=== PATIENT | male | born 1945 ===

== ENCOUNTER 2017-01-23 09:22 | Day surgery (SDC) | payer SELFPAY ==
[2017-01-18 09:42] VITALS: BMI 38.7
[2017-01-23] MEDS ORDERED: Propofol 10 mg/ml Inj (20 ML) ONE ×2 (11:18→11:46)
[2017-01-23] MEDS ORDERED: Benzocaine/Butamben/Tetracai 14-2-2% TOP Spray TOP ONE (11:24)
[2017-01-23] MEDS ORDERED: Sodium Chloride 0.9% 1,000 ML IV SCH (12:15)
[2017-01-23] MEDS ORDERED: HYDROmorphone 0.5 mg/0.5 ml ISec IVP PRN (12:25)
[2017-01-23] MEDS ORDERED: HYDROmorphone 0.5 mg/0.5 ml ISec ONE (12:30)
[2017-01-23 12:42] VITALS: RESP 16
[2017-01-23 13:08] VITALS: TEMP 97.5
[2017-01-23 13:48] VITALS: BP 144/73; PULSE 57; O2SAT 98
== END 2017-01-23 14:18 | disposition home or self-care (01) ==
LOC: ENDO 09:22
PROVIDERS: ATTEND Internal Medicine
DX: K22.710 Barrett's esophagus with low grade dysplasia (principal); K29.70 Gastritis, unspecified, without bleeding; K44.9 Diaphragmatic hernia without obstruction or gangrene; E66.9 Obesity, unspecified; Z68.38 Body mass index [BMI] 38.0-38.9, adult
CPT/HCPCS: 43270; J1170; J2704; J7040 ×2

== ENCOUNTER 2017-03-04 11:25 | Inpatient (IN) | payer SELFPAY ==
[2017-03-04 11:26] VITALS: BMI 38.7
[2017-03-04] MEDS ORDERED: Sodium Chloride 0.9% 500 ML IV STA (12:12)
--- NOTE | 2017-03-04 12:17 | ED PDOC ---
Arrival/HPI - General Historian: Patient, Family (daughter ) - History of Present Illness Time/Duration: Other (2 days.) Symptom Onset: Gradual Symptom Course: Worsening Quality: Cramping Context: Home - General Chief Complaint: Abdominal Pain Time Seen by Provider: 03/04/17 11:35 - History of Present Illness Narrative History of Present Illness (Text): 03/04/17 12:18 Patient is a 71 y/o M with PMH of Torres esophagus, hld, pituitary adenoma s/p partial resection, chronic prednisone use presenting with watery diarrhea, lower GI bleeding, and abdominal pain. Patient states since yesterday he has been experiencing watery diarrhea and abdominal cramps, then today he noticed blood in the stool. Patient states the toilet bowel was filled with stool, and he also noticed blood when he wiped. Patient's unable to say the color of the stool. Patient unable to quantify the number of time he had diarrhea. Patient denies vomiting, admits to nausea. Patient admits to cramping like abdominal pain. Patient states since yesterday he had no appetite. Patient denies fever, chills, cp, sob, denies sick contact. patient admits to feeling dizzy, and lightheadedness. (Mariah Moreno) Past Medical History - Provider Review Nursing Documentation Reviewed: Yes - Travel History Have you recently traveled outside [place] w/in the past 3 mons?: No - Past History Past History: No Previous - Infectious Disease Hx of Infectious Diseases: None - Tetanus Immunization Tetanus Immunization: Unknown - Cardiac Hx Cardiac Disorders: No Hx Pacemaker: No - Pulmonary Hx Respiratory Disorders: No - Neurological Hx Neurological Disorder: No Hx Paralysis: No - HEENT Hx HEENT Disorder: Yes Hx Cataracts: Yes (SURGERY 2013) - Renal Hx Renal Disorder: No - Endocrine/Metabolic Hx Endocrine Disorders: Yes Hx Hypothyroidism: Yes Other/Comment: tumor pituitary gland - Hematological/Oncological Hx Blood Disorders: No Hx Blood Transfusions: No Hx Blood Transfusion Reaction: No - Integumentary Hx Dermatological Disorder: No - Musculoskeletal/Rheumatological Hx Musculoskeletal Disorders: Yes - Gastrointestinal Hx Gastrointestinal Disorders: Yes Hx Gastroesophageal Reflux: Yes Other/Comment: TORRES'S ESOPHAGUS - Genitourinary/Gynecological Hx Genitourinary Disorders: No - Psychiatric Hx Psychophysiologic Disorder: No Hx Emotional Abuse: No Hx Physical Abuse: No Hx Substance Use: No - Surgical History Other/Comment: pituitary - Anesthesia Hx Anesthesia Reactions: No Hx Malignant Hyperthermia: No - Suicidal Assessment Feels Threatened In Home Enviroment: No Family/Social History - Physician Review Nursing Documentation Reviewed: Yes Family/Social History: No Known Family HX Smoking Status: Former Smoker Hx Alcohol Use: No Hx Substance Use: No Allergies/Home Meds Allergies/Adverse Reactions: Allergies No Known Allergies Allergy (Verified 09/24/16 09:08) Home Medications: Home Meds Medication Instructions Recorded Confirmed Hydrocortisone [Cortef] 20 mg PO DAILY 06/21/16 03/04/17 Levothyroxine [Synthroid] 100 mcg PO DAILY 06/21/16 03/04/17 Hydrocortisone [Cortef] 10 mg PO QPM 01/18/17 03/04/17 Omeprazole [Omeprazole] 40 mg PO BID 01/23/17 03/04/17 Atorvastatin [Lipitor] 10 mg PO HS 03/04/17 03/04/17 Review of Systems - Review of Systems Constitutional: Normal Eyes: Normal ENT: Normal Respiratory: Normal Cardiovascular: Normal Gastrointestinal: Abdominal Pain, Stool Changes, Diarrhea, Nausea, Appetite Changes, Hematochezia. absent: Vomiting, Hematemesis Genitourinary Male: Normal Musculoskeletal: Normal Skin: Normal Neurological: Dizziness. absent: Headache, Focal Weakness Endocrine: Normal Hemo/Lymphatic: Normal Psychiatric: Normal Physical Exam Vital Signs Reviewed: Yes Temperature: Afebrile Blood Pressure: Normal Pulse: Regular Respiratory Rate: Normal Appearance: Positive for: Well-Appearing, Non-Toxic, Comfortable Pain Distress: None Mental Status: Positive for: Alert and Oriented X 3 - Systems Exam Head: Present: Atraumatic, Normocephalic Conjunctiva: No: Icteric Mouth: Present: Dry Neck: Present: Normal Range of Motion Respiratory/Chest: Present: Clear to Auscultation, Good Air Exchange. No: Respiratory Distress, Accessory Muscle Use, Wheezes, Rales, Retracting, Rhonchi , Tachypneic Cardiovascular: Present: Regular Rate and Rhythm, Normal S1, S2. No: Murmurs, Tachycardic, Bradycardic, Rub, Gallop Abdomen: Present: Tenderness (diffuse.), Normal Bowel Sounds. No: Distention ( obese abdomen. ), Rebound, Guarding Rectal: Present: Hemorrhoids (non bleeding.), Normal Rectal Tone. No: Occult Blood, Rectal Tenderness, Gross Blood, Melena, Fissures Upper Extremity: Present: Normal Inspection. No: Cyanosis, Edema Lower Extremity: Present: Normal Inspection. No: Edema Neurological: Present: GCS=15 Skin: Present: Warm, Dry, Normal Color. No: Rashes Psychiatric: Present: Alert, Oriented x 3, Normal Insight, Normal Concentration Medical Decision Making - Lab Interpretations I have reviewed the lab results: Yes (hypokalemia ) - EKG Interpretation Interpreted by ED Physician: Yes Type: 12 lead EKG ED Course and Treatment: 03/04/17 12:36 Patient is a 71 y/o M with PMH of Torres esophagus, hld, pituitary adenoma s/p partial resection, chronic prednisone use presenting with watery diarrhea, lower GI bleeding, and abdominal pain. Differentials: Lower gi bleeding 2nd to hemorrhoid versus diverticular disease, vascular ectasias, colitis. Plan: CBC, CMP, TYP AND SCREEN, PT/PTT, LIPASE, UA CHEST X-RAY, EKG, CT abdo and pelvis with IV contrast Prednisone 40 mg ivp, zofran 4 m g ivp and 1/2 L of NS. No gross blood on rectal exam, non bleeding hemorrhoid, Stool guaic positive. Patient seen, examined, case discussed with Dr Parks. 03/04/17 14:23 Labs were normal, excpet hypokalemia . CT abdomen and pelvis revealed extensive colitis. Dr Parks spoke to Dr Toth, patient is to be admitted under the hospitalist service for colitis. (Maraih Moreno) In agreement with resident note, which includes further HPI details. Patient was seen and evaluated with resident, came up with plan and treatment together. pt with gi bleed, and abdominal pain. ct shows colitis h/h stable. vitals stable. stablef or tele. antibiotics dosed 03/04/17 15:41 (Jason Parks) - Lab Interpretations Lab Results: 03/04/17 12:30 03/04/17 12:30 Lab Results 03/04/17 12:30: Sodium 135, Potassium 3.3 L, Chloride 103, Carbon Dioxide 22, Anion Gap 13, BUN 12, Creatinine 1.0, Est GFR ( Amer) > 60, Est GFR (Non- Af Amer) > 60, Random Glucose 93, Calcium 8.5, Total Bilirubin 0.7, AST 34, ALT 42, Alkaline Phosphatase 72, Lactate Dehydrogenase 542, Total Creatine Kinase 88 , Troponin I < 0.01, Total Protein 6.8, Albumin 3.8, Globulin 3.1, Albumin/ Globulin Ratio 1.2, Lipase 78 03/04/17 12:30: PT 11.0, INR 1.02, APTT 27.5 03/04/17 12:30: WBC 5.0, RBC 4.91, Hgb 14.1, Hct 41.4 L, MCV 84.3, MCH 28.7, MCHC 34.1, RDW 14.8 H, Plt Count 158, MPV 9.3, Gran % 68.5 H, Lymph % (Auto) 22.4, [place] % (Auto) 7.9 H, Eos % (Auto) 0.8 L, Baso % (Auto) 0.4, Gran # 3.40, Lymph # 1.1 L, [place] # 0.4, Eos # 0.0, Baso # 0.02 03/04/17 12:30: Blood Type AB POSITIVE, Antibody Screen Negative, BBK History Checked No verified bt - RAD Interpretation Narrative RAD Interpretations (Text): 03/04/17 14:34 Normal chest x-ray . CT abdo/pelvis with IV contrast: mural thickening, consistent with colitis. ( Mariah Moreno) Radiology Orders: 03/04/17 12:08 CHEST ONE VIEW [RAD] Stat 03/04/17 12:11 ABDOMEN & PELVIS [ABD & PELVIS IV CONTRAST ONLY] [CT] Stat - EKG Interpretation EKG Interpretation (Text): 03/04/17 14:36 NSR with AR of 68 bpm Normal axis No CO or QRS prolongation mildly prolonged QTC Inferior infarct, age undetermined. (Mariah Moreno) - Medication Orders Current Medication Orders: Discontinued Medications Sodium Chloride (Sodium Chloride 0.9%) 500 mls @ 999 mls/hr IV .Q31M STA Stop: 03/04/17 12:42 Last Admin: 03/04/17 12:30 Dose: 999 mls/hr Piperacillin Sod/Tazobactam Sod (Zosyn 3.375 In Ns 100ml) 100 mls @ 200 mls/hr IVPB STAT STA PRN Reason: Protocol Stop: 03/04/17 14:40 Last Admin: 03/04/17 14:33 Dose: 200 mls/hr Iohexol (Omnipaque 350 100 Ml) Confirm Administered Dose 350 mg .ROUTE .STK-MED ONE Stop: 03/04/17 13:17 Ondansetron HCl (Zofran Inj) 4 mg IVP STAT STA Stop: 03/04/17 12:11 Last Admin: 03/04/17 12:29 Dose: 4 mg Pantoprazole Sodium (Protonix Inj) 40 mg IVP STAT STA Stop: 03/04/17 12:11 Last Admin: 03/04/17 12:31 Dose: 40 mg Potassium Chloride (K-Dur 20 Meq Er Tab) 40 meq PO STAT STA Stop: 03/04/17 13:10 Last Admin: 03/04/17 13:19 Dose: 40 meq Disposition/Present on Arrival - Present on Arrival Any Indicators Present on Arrival: No History of DVT/PE: No History of Uncontrolled Diabetes: No Urinary Catheter: No History of Decub. Ulcer: No History Surgical Site Infection Following: None - Disposition Have Diagnosis and Disposition been Completed?: Yes Disposition Time: 14:38 Patient Plan: Admission, Telemetry - Disposition Diagnosis: Colitis, Hypokalemia Disposition: HOSPITALIZED Patient Problems: Current Active Problems Problem Status Onset Colitis Acute Hypokalemia Acute Condition: STABLE
[2017-03-04 12:55] LABS: ADD MANUAL DIFF? NO
[2017-03-04 12:58] LABS: BASO # 0.02 K/mm3 (0.0-2.0); BASO % 0.4 % (0.0-3.0); EOS % 0.8 % (1.5-5.0); GRAN % 68.5 % (50.0-68.0); HEMATOCRIT 41.4 % (42.0-52.0); LYMPH # 1.1 (1.2-3.4); LYMPH % 22.4 % (22.0-35.0); MEAN CELL VOLUME 84.3 fL (80.0-105.0); MEAN CORPUSCULAR HEMOGLOBIN 28.7 pg (25.0-35.0); MEAN CORPUSCULAR HGB CONC 34.1 g/dl (31.0-37.0); MEAN PLATELET VOLUME 9.3 fl (7.0-11.0); MONO # 0.4 (0.1-0.6); MONO % 7.9 % (1.0-6.0); PLATELET COUNT 158 10^3/uL (120.0-450.0); RED CELL DISTRIBUTION WIDTH 14.8 % (11.5-14.5)
[2017-03-04 13:07] LABS: ALB/GLOB RATIO 1.2 (1.1-1.8); ALKALINE PHOSPHATASE 72 U/L (38-133); ALT/SGPT 42 U/L (7-56); AST/SGOT 34 U/L (15-59); BILIRUBIN,TOTAL 0.7 mg/dL (0.2-1.3); BLOOD UREA NITROGEN 12 mg/dL (7-21); CALCIUM 8.5 mg/dL (8.4-10.5); CARBON DIOXIDE 22 mmol/L (21-33); CHLORIDE 103 mmol/L (98-107); GFR AFRICAN-AMERICAN > 60; GLUCOSE,RANDOM 93 mg/dL (70-110); LIPASE 78 U/L (23-300); POTASSIUM 3.3 mmol/L (3.6-5.0); SODIUM 135 mmol/L (132-148); TOTAL PROTEIN 6.8 g/dL (5.8-8.3)
[2017-03-04 13:09] LABS: INR 1.02 (0.93-1.08); PARTIAL THROMBOPLASTIN TIME 27.5 Seconds (23.7-30.8)
[2017-03-04] MEDS ORDERED: Potassium Chloride 20 mEq ER Tab PO STA (13:09)
[2017-03-04] MEDS ORDERED: Iohexol 350 MG/100 ML VIAL ONE (13:16)
--- NOTE | 2017-03-04 13:18 | RAD ---
PROCEDURE: CHEST RADIOGRAPH, 1 VIEW HISTORY: gi bleed COMPARISON: None available. FINDINGS: LUNGS: Clear. PLEURA: No pneumothorax or pleural fluid seen. CARDIOVASCULAR: Normal. OSSEOUS STRUCTURES: No significant abnormalities. VISUALIZED UPPER ABDOMEN: Normal. OTHER FINDINGS: None. IMPRESSION: No active disease.
[2017-03-04 13:19] LABS: TROPONIN I < 0.01 ng/mL
[2017-03-04] MEDS ORDERED: Piperacillin/Tazobact 3.375 gm 100 ML IVPB STA (14:11)
--- NOTE | 2017-03-04 14:12 | CT ---
PROCEDURE: CT Abdomen and Pelvis with contrast HISTORY: gi bleed COMPARISON: None. TECHNIQUE: Contrast dose: 100 cc of Omni 350 Radiation dose: Total exam DLP = 823 mGy-cm. This CT exam was performed using one or more of the following dose reduction techniques: Automated exposure control, adjustment of the mA and/or kV according to patient size, and/or use of iterative reconstruction technique. FINDINGS: LOWER THORAX: Unremarkable. LIVER: Unremarkable. No gross lesion or ductal dilatation. GALLBLADDER AND BILE DUCTS: Unremarkable. PANCREAS: Unremarkable. No gross lesion or ductal dilatation. SPLEEN: Unremarkable. ADRENALS: Unremarkable. No mass. KIDNEYS AND URETERS: Unremarkable. No hydronephrosis. No solid mass. VASCULATURE: Unremarkable. No aortic aneurysm. BOWEL: There is mural thickening throughout the colon consistent with colitis. The findings are more severe on the right side. There is no evidence of pneumatosis or free air. APPENDIX: Normal appendix. PERITONEUM: Unremarkable. No free fluid. No free air. LYMPH NODES: Unremarkable. No enlarged lymph nodes. BLADDER: Unremarkable. REPRODUCTIVE: Unremarkable. BONES: No acute fracture. OTHER FINDINGS: None. IMPRESSION: Mural thickening throughout the colon consistent with colitis.
[2017-03-04] MEDS: metroNIDAZOLE IV 500 mg/100 ml 500 MG/100 ML BAG IVPB SCH ×2 (16:59→21:13)
[2017-03-04 17:19] LABS: ADD MANUAL DIFF? NO
--- NOTE | 2017-03-04 17:22 | CP.PCM.HP ---
Addendum entered and electronically signed by Wilfred Dinh DO 03/04/17 17:46: History and ROS obtained at bedside using [employer] umbrella repairer, Feliz Starkey #[id number] Original Note: <Wilfred Dinh - Last Filed: 03/04/17 17:10> History of Present Illness - History of Present Illness History of Present Illness: Internal Medicine H&P for Dr. Toth CC: Watery diarrhea with bright red blood and diffuse abd pain x2 days HPI: This is a 71yo (Ivorian-speaking only) M with PMH of Torres esophagus s/p EGD ablations, HLD, pituitary adenoma s/p partial resection on chronic steroid and thyroid replacement therapy who presents to [facility] with complain of diffuse abdominal pain and watery diarrhea with bright red blood present x2 days. As per patient, he recently changed from taking Omeprazole 20mg BID to 40mg BID (it appears he was supposed to do this after EGD/ Colonoscopy), which he believes is causing these symptoms. Patient denies sick contacts, chest pain, shortness of breath, dysuria/hematuria, or emesis, but reports abdominal pain starting in LLQ now diffusely present, sensation of needing to vomit but being unable to, and lack of appetite/poor PO intake x2 days. Denies past abdominal surgeries. Notes that the blood associated with his diarrhea appears to be mixed with the watery stool, not only appearing when he wipes. Denies hx of hemorrhoids. Denies straining to move bowels. No prior occurrence of these symptoms. PMH: as above PSH: partial resection of pituitary adenoma, unspecified left hip procedure 8 months ago, Cataract removal, Ablation of Speedy's esophagus lesions by EGD SHx: Denies tobacco/EtOH/Illicit use PMD: Present on Admission - Present on Admission Any Indicators Present on Admission: No History of DVT/PE: No History of Uncontrolled Diabetes: No Review of Systems - Constitutional Constitutional: absent: Chills, Fever, Malaise, Weakness - EENT Eyes: absent: Blurred Vision, Change in Vision, Loss of Vision Ears: absent: Disequilibrium, Dizziness Nose/Mouth/Throat: absent: Neck Pain, Neck Mass Additional comments: sensation of needing to vomit but stuck in throat - Cardiovascular Cardiovascular: absent: Chest Pain, Dyspnea, Leg Edema, Lightheadedness, Palpitations, Syncope - Respiratory Respiratory: absent: Cough, Dyspnea, Hemoptysis, Pain on Inspiration - Gastrointestinal Gastrointestinal: Abdominal Pain (initially LLQ, now diffuse, describes as sensation of bloating/moving of intestines with accompanying discomfort), Change in Bowel Habits, Diarrhea (watery diarrhea), Nausea, Other (bright red blood in toilet bowel with watery diarrhea and when wiping). absent: Vomiting - Genitourinary Genitourinary: Urinary Frequency. absent: Difficulty Urinating, Dysuria, Flank Pain, Hematuria - Musculoskeletal Musculoskeletal: absent: Back Pain, Numbness, Radiating Pain into Limb - Integumentary Integumentary: absent: Pruritus, Rash - Neurological Neurological: Numbness (mild intermittent numbness in bilateral feet, baseline for patient). absent: Disequilibrium, Dizziness, Focal Weakness, Loss of Vision , Syncope, Vertigo, Other Visual Disturbances - Psychiatric Psychiatric: absent: Anxiety - Endocrine Endocrine: absent: Fatigue, Palpitations Past Patient History - Infectious Disease Hx of Infectious Diseases: None - Tetanus Immunizations Tetanus Immunization: Unknown - Past Medical History & Family History Past Medical History?: Yes - Past Social History Smoking Status: Former Smoker - CARDIAC Hx Cardiac Disorders: No Hx Pacemaker: No - PULMONARY Hx Respiratory Disorders: No - NEUROLOGICAL Hx Neurological Disorder: No Hx Paralysis: No - HEENT Hx HEENT Problems: Yes Hx Cataracts: Yes (SURGERY 2013) - RENAL Hx Chronic Kidney Disease: No - ENDOCRINE/METABOLIC Hx Endocrine Disorders: Yes Hx Hypothyroidism: Yes Other/Comment: tumor pituitary gland - HEMATOLOGICAL/ONCOLOGICAL Hx Blood Disorders: No Hx Blood Transfusions: No Hx Blood Transfusion Reaction: No - INTEGUMENTARY Hx Dermatological Problems: No - MUSCULOSKELETAL/RHEUMATOLOGICAL Hx Musculoskeletal Disorders: Yes - GASTROINTESTINAL Hx Gastrointestinal Disorders: Yes Hx Gastroesophageal Reflux: Yes Other/Comment: TORRES'S ESOPHAGUS - GENITOURINARY/GYNECOLOGICAL Hx Genitourinary Disorders: No - PSYCHIATRIC Hx Psychophysiologic Disorder: No Hx Emotional Abuse: No Hx Physical Abuse: No Hx Substance Use: No - SURGICAL HISTORY Other/Comment: pituitary - ANESTHESIA Hx Anesthesia Reactions: No Hx Malignant Hyperthermia: No Meds Allergies/Adverse Reactions: Allergies Allergy/AdvReac Type Severity Reaction Status Date / Time No Known Allergies Allergy Verified 09/24/16 09:08 Results - Vital Signs Recent Vital Signs: Last Vital Signs Temp 98.8 F 03/04/17 11:41 Pulse 68 03/04/17 16:28 Resp 18 03/04/17 16:28 BP 121/68 03/04/17 16:28 Pulse Ox 97 03/04/17 16:28 - Labs Result Diagrams: 03/04/17 12:30 03/04/17 12:30 Labs: Laboratory Results - last 24 hr 03/04/17 14:40 Blood Type Confirm AB POSITIVE Assessment & Plan - Assessment and Plan (Free Text) Assessment: This is a 71yo (Ivorian-speaking only) M with PMH of Torres esophagus s/p EGD ablations, HLD, pituitary adenoma s/p partial resection on chronic steroid and thyroid replacement therapy who presents to [facility] with complain of diffuse abdominal pain and watery diarrhea with bright red blood present x2 days. He is being worked up for GI bleed vs hemorrhoid vs enteritis. Plan: 1) Watery diarrhea and abd pain with bright red blood in bowel and wiping -Crohn's vs UC vs enteritis vs Upper GI bleed vs Lower GI bleed vs diarrhea co- presenting with hemorrhoid; may have contributory element from chronic steroids -Conoscopy in 06/21/16 notable for non-bleeding internal hemorroids, 6mm polyp ( resected) -Denies use of NSAIDs, no prior incidence of bleeding episodes like this -Hgb 14.1 (baseline for this pt), repeat H&H at 530pm and reassess, some hgb drop likely due to hemoconcentration (Poor intake and watery diarrhea x2 days) -Possible upper GI ulceration, patient reports that he was supposed to start Omeprazole 40mg PO BID after last EGD, but he waited to start until he finished his bottle of 20mg PO BID, which he only finished 3 days prior -Convert from home PO PPI to protonix IV 40mg BID; presentation of patient not suggestive of needing Protonix drip at this time -Stool occult positive -CT abd in Ed notable for mural thickening throughout the colon consistent with colitis, more severe on the right, no evidence of pneumatosis/free air -NPO except meds for bowel rest, NS 125cc/hr, Protonix 40mg IVP BID -Zofran PRN for nausea/emesis -GI (Dr. Gonzalez) consulted, appreciate all recs -1x dose of Zosyn in ED, covering empirically with rocephin/flagyl IV -Less likely C. Diff. as no recent abx use, last visit to hospital in January 2017, but C. diff toxin test ordered to rule out 2) Left hip/thigh pain -LE Duplex to rule out dvt -avoid AC due to suspected GI bleed, SCDs for DVT ppx 3) HLD -continue home Lipitor 4) S/p pituitary adenoma partial resection on steroid and thyroid replacement therapy -continue home Synthroid, IV hydrocortisone instead of PO (otherwise same dosing ) 5) Hypokalemia -3.3 on ED labs -likely 2/2 diarrhea and poor PO intake -repleted in ED, f/u on AM labs Dispo: Remote telemetry, pending GI eval, NPO and IVF for bowel rest, empiric IV abx coverage FEN: NPO, NS 125cc/hr Access: Peripheral IV Consults: GI Ppx: Protonix covers for GI, SCDs for DVT (avoid AC in setting of possible GI bleed) Patient seen, reviewed, and discussed with attending, Dr. Toth - Date & Time Date: 03/04/17 Time: 16:30 Decision To Admit - Pt Status Changed To: Hospital Disposition Of: Inpatient Admission - Admit Certification Admit to Inpatient:: After my assessment, the patient will require hospitalization for at least two midnights. This is because of the severity of symptoms shown, intensity of services needed, and/or the medical risk in this patient being treated as an outpatient. - . Bed Request Type: Remote Telemetry <Viki Toth - Last Filed: 03/04/17 17:55> Results - Vital Signs Recent Vital Signs: Last Vital Signs Temp 98.8 F 03/04/17 11:41 Pulse 68 03/04/17 16:28 Resp 18 03/04/17 16:28 BP 121/68 03/04/17 16:28 Pulse Ox 97 03/04/17 16:28 - Labs Result Diagrams: 03/04/17 17:00 03/04/17 12:30 Labs: Laboratory Results - last 24 hr 03/04/17 03/04/17 14:40 17:00 WBC 4.9 RBC 4.73 Hgb 13.5 L Hct 40.0 L MCV 84.6 MCH 28.5 MCHC 33.8 RDW 14.7 H Plt Count 164 MPV 9.2 Gran % 66.2 Lymph % (Auto) 24.8 [place] % (Auto) 7.6 H Eos % (Auto) 1.2 L Baso % (Auto) 0.2 Gran # 3.23 Lymph # 1.2 [place] # 0.4 Eos # 0.1 Baso # 0.01 Blood Type Confirm AB POSITIVE Attending/Attestation - Attestation I have personally seen and examined this patient.: Yes I have fully participated in the care of the patient.: Yes I have reviewed all pertinent clinical information: Yes Notes (Text): 03/04/17 17:49 71 year old male with past medical history of Torres's esophagus s/p EGD ablations, dyslipidemia, pituitary adenoma s/p partial resection who presents today with complaint of abdominal pain and diarrhea. CT abd/pelvis showed colitis. Will keep NPO, on iv fluids, protonix and antibiotics. GI evaluation is requested. Stool for cdif is ordered. Patient is also on synthroid and chronic steroids for history of pituitary adenoma s/p partial resection. Hypokalemia was repleted in ER. Will monitor. Viki Toth MD Hospitalist.
[2017-03-04 17:23] LABS: BASO # 0.01 K/mm3 (0.0-2.0); BASO % 0.2 % (0.0-3.0); EOS # 0.1 (0.0-0.7); EOS % 1.2 % (1.5-5.0); GRAN # 3.23 (1.4-6.5); GRAN % 66.2 % (50.0-68.0); LYMPH # 1.2 (1.2-3.4); LYMPH % 24.8 % (22.0-35.0); MEAN CELL VOLUME 84.6 fL (80.0-105.0); MEAN CORPUSCULAR HEMOGLOBIN 28.5 pg (25.0-35.0); MEAN CORPUSCULAR HGB CONC 33.8 g/dl (31.0-37.0); MEAN PLATELET VOLUME 9.2 fl (7.0-11.0); MONO # 0.4 (0.1-0.6); MONO % 7.6 % (1.0-6.0); PLATELET COUNT 164 10^3/uL (120.0-450.0); RED CELL DISTRIBUTION WIDTH 14.7 % (11.5-14.5); WHITE BLOOD COUNT 4.9 10^3/ul (4.5-11.0)
[2017-03-04] MEDS ORDERED: HYDROCORTISONE IV SCH (18:00)
[2017-03-04] MEDS: cefTRIAXone 1 gm 1 GM/100 ML BAG IVPB SCH (18:36)
[2017-03-04] MEDS ORDERED: Sodium Chloride 0.9% 1,000 ML IV SCH (18:45)
[2017-03-04] MEDS: Sodium Chloride 0.9% 1,000 ML IV SCH (19:02)
[2017-03-04] MEDS: TraMADol/Apap 37.5/325 mg Tab PO PRN (19:27)
[2017-03-05 02:02] LABS: URINE BILIRUBIN NEGATIVE (NEGATIVE); URINE BLOOD SMALL (NEGATIVE); URINE GLUCOSE (UA) NEGATIVE (NEGATIVE); URINE KETONE 40 mg/dL (NEGATIVE); URINE LEUKOCYTE ESTERASE NEGATIVE Leu/uL (NEGATIVE); URINE PROTEIN TRACE mg/dL (<30 mg/dL); URINE UROBILINOGEN 0.2 E.U./dL (<1 E.U./dL)
[2017-03-05 02:16] LABS: URINE APPEARANCE CLEAR (CLEAR); URINE COLOR YELLOW (YELLOW)
[2017-03-05 02:24] LABS: URINE BACTERIA FEW (NEG); URINE EPITHELIAL CELLS 0 - 2 /hpf (0-5); URINE RBC 0 - 2 /hpf (0-2); URINE WBC 0 - 2 /hpf (0-6)
[2017-03-05] MEDS: Sodium Chloride 0.9% 1,000 ML IV SCH ×3 (04:00→20:00)
[2017-03-05] MEDS: metroNIDAZOLE IV 500 mg/100 ml 500 MG/100 ML BAG IVPB SCH ×3 (05:13→21:27)
[2017-03-05] MEDS: TraMADol/Apap 37.5/325 mg Tab PO PRN (05:18)
--- NOTE | 2017-03-05 08:30 | CP.PCM.CON ---
History of Present Illness - History of Present Illness History of Present Illness: Asked by hospitalist team for a GI consultation on this patient. 71 year old male with history of Torres's esophagus, pituitary adenoma s/p resection on steroid and thyroid replacement therapy, who presents to hospital with complaint of diffuse abdominal pain and diarrhea for past 3 days. Prior to this he was in usual state of health. He describes having multiple loose bowel movements, mixed with blood. His abdominal pain is generalized but worse in LLQ , he had 3 bowel movements overnight which appeared black in color. He denies nausea, vomiting, fever/chills, weight loss, recent travel (he went to [place] in June 2016), sick contacts, antibiotic use, or similar prior episodes. He recently underwent EGD in January 2017 with cryoablation for treatment of low grade dysplastic Torres's esophagus, had a colonoscopy in June 2016 which showed diverticulosis, sigmoid polyp, and internal hemorrhoids. Social history: former smoker, no ETOH use Family history: father (unknown cancer) Review of Systems - Review of Systems Review of Systems: - All other comprehensive 12 point review of systems performed, negative - Cardiovascular Cardiovascular: absent: Acrocyanosis, Chest Pain, Chest Pain at Rest, Chest Pain with Activity, Claudication, Diaphoresis, Dyspnea, Dyspnea on Exertion, Edema, Irregular Heart Rhythm, Pain Radiating to Arm/Neck/Jaw, Leg Edema, Leg Ulcers, Lightheadedness, Orthopnea, Palpitations, Paroxysmal Nocturnal Dyspnea, Pedal Edema, Radiating Pain, Rapid Heart Rate, Slow Heart Rate, Syncope, Other - Respiratory Respiratory: absent: Cough, Dyspnea, Hemoptysis, Dyspnea on Exertion, Wheezing, Snoring, Stridor, Pain on Inspiration, Chest Congestion, Excessive Mucous Production, Change in Mucous Color, Pain with Coughing, Other - Gastrointestinal Gastrointestinal: Abdominal Pain, Hematochezia - Musculoskeletal Musculoskeletal: absent: Abnormal Gait, Arthralgias, Atrophy, Back Pain, Deformity, Joint Swelling, Limited Range of Motion, Loss of Height, Muscle Cramps, Muscle Weakness, Myalgias, Neck Pain, Numbness, Radiating Pain into Limb , Stiffness, Tingling, Other - Neurological Neurological: absent: Abnormal Gait, Abnormal Hearing, Abnormal Movements, Abnormal Speech, Behavioral Changes, Burning Sensations, Confusion, Convulsions , Disequilibrium, Dizziness, Numbness, Focal Weakness, Frequent Falls, Headaches , Lack of Coordination, Loss of Vision, Memory Loss, Paresthesias, Radicular Pain, Restless Legs, Sensory Deficit, Syncope, Tingling, Tremor, Vertigo, Weakness, Other Visual Disturbances, Other Past Patient History - Infectious Disease Hx of Infectious Diseases: None - Tetanus Immunizations Tetanus Immunization: Unknown - Past Medical History & Family History Past Medical History?: Yes - Past Social History Smoking Status: Former Smoker - CARDIAC Hx Cardiac Disorders: No Hx Pacemaker: No - PULMONARY Hx Respiratory Disorders: No - NEUROLOGICAL Hx Neurological Disorder: No Hx Paralysis: No - HEENT Hx HEENT Problems: Yes Hx Cataracts: Yes (SURGERY 2013) - RENAL Hx Chronic Kidney Disease: No - ENDOCRINE/METABOLIC Hx Endocrine Disorders: Yes Hx Hypothyroidism: Yes Other/Comment: tumor pituitary gland - HEMATOLOGICAL/ONCOLOGICAL Hx Blood Disorders: No Hx Blood Transfusions: No Hx Blood Transfusion Reaction: No - INTEGUMENTARY Hx Dermatological Problems: No - MUSCULOSKELETAL/RHEUMATOLOGICAL Hx Musculoskeletal Disorders: Yes - GASTROINTESTINAL Hx Gastrointestinal Disorders: Yes Hx Gastroesophageal Reflux: Yes Other/Comment: TORRES'S ESOPHAGUS - GENITOURINARY/GYNECOLOGICAL Hx Genitourinary Disorders: No - PSYCHIATRIC Hx Psychophysiologic Disorder: No Hx Emotional Abuse: No Hx Physical Abuse: No Hx Substance Use: No - SURGICAL HISTORY Other/Comment: pituitary - ANESTHESIA Hx Anesthesia Reactions: No Hx Malignant Hyperthermia: No Meds Allergies/Adverse Reactions: Allergies Allergy/AdvReac Type Severity Reaction Status Date / Time No Known Allergies Allergy Verified 09/24/16 09:08 - Medications Medications: Current Medications Atorvastatin Calcium (Lipitor) 10 mg PO HS [facility] Last Admin: 03/04/17 21:13 Dose: 10 mg Hydrocortisone Sodium Succinate (Solu-Cortef) 20 mg IV QAM TING Hydrocortisone Sodium Succinate (Solu-Cortef) 10 mg IV QPM [facility] Last Admin: 03/04/17 18:29 Dose: 10 mg Metronidazole (Flagyl) 500 mg in 100 mls @ 100 mls/hr IVPB Q8 TING PRN Reason: Protocol Last Admin: 03/05/17 05:13 Dose: 100 mls/hr Ceftriaxone Sodium (Rocephin 1 Gram Ivpb) 1 gm in 100 mls @ 100 mls/hr IVPB DAILY [facility] PRN Reason: Protocol Last Admin: 03/04/17 18:36 Dose: 100 mls/hr Sodium Chloride (Sodium Chloride 0.9%) 1,000 mls @ 125 mls/hr IV .Q8H TING Last Admin: 03/05/17 04:00 Dose: 125 mls/hr Levothyroxine Sodium (Synthroid) 100 mcg PO DAILY [facility] Ondansetron HCl (Zofran Inj) 4 mg IVP Q6H PRN PRN Reason: Nausea/Vomiting Last Admin: 03/04/17 19:03 Dose: 4 mg Pantoprazole Sodium (Protonix Inj) 40 mg IVP Q12 [facility]ING Last Admin: 03/04/17 21:13 Dose: 40 mg Tramadol/Acetaminophen (Ultracet 37.5/325 Mg) 1 tab PO Q6H PRN PRN Reason: Pain, moderate (4-7) Last Admin: 03/05/17 05:18 Dose: 1 tab Physical Exam - Constitutional Appears: Non-toxic, No Acute Distress - Head Exam Head Exam: NORMAL INSPECTION - Eye Exam Eye Exam: EOMI, Normal appearance - ENT Exam ENT Exam: Mucous Membranes Moist - Respiratory Exam Respiratory Exam: Clear to Auscultation Bilateral - Cardiovascular Exam Cardiovascular Exam: REGULAR RHYTHM, +S1, +S2 - GI/Abdominal Exam GI & Abdominal Exam: Normal Bowel Sounds, Soft, Tenderness Additional comments: mild generalized tenderness to palpation, no rebound/guarding no palpable hepato/splenomegaly - Extremities Exam Extremities exam: Positive for: normal inspection - Neurological Exam Neurological exam: Alert, CN II-XII Intact, Oriented x3, Reflexes Normal - Psychiatric Exam Psychiatric exam: Normal Affect, Normal Mood - Skin Skin Exam: Dry, Intact, Normal Color, Warm Results - Vital Signs Recent Vital Signs: Last Vital Signs Temp 98.8 F 03/04/17 11:41 Pulse 61 03/05/17 06:00 Resp 20 03/04/17 17:43 BP 121/68 03/04/17 16:28 Pulse Ox 97 03/04/17 16:28 - Labs Result Diagrams: 03/04/17 17:00 03/04/17 12:30 Labs: Laboratory Results - last 24 hr 03/04/17 03/04/17 03/05/17 14:40 17:00 01:30 WBC 4.9 RBC 4.73 Hgb 13.5 L Hct 40.0 L MCV 84.6 MCH 28.5 MCHC 33.8 RDW 14.7 H Plt Count 164 MPV 9.2 Gran % 66.2 Lymph % (Auto) 24.8 [place] % (Auto) 7.6 H Eos % (Auto) 1.2 L Baso % (Auto) 0.2 Gran # 3.23 Lymph # 1.2 [place] # 0.4 Eos # 0.1 Baso # 0.01 Urine Color Yellow Urine Appearance Clear Urine pH 6.0 Ur Specific [place] >= 1.030 Urine Protein Trace H Urine Glucose (UA) Negative Urine Ketones 40 H Urine Blood Small H Urine Nitrate Negative Urine Bilirubin Negative Urine Urobilinogen 0.2 Ur Leukocyte Esterase Negative Urine RBC 0 - 2 Urine WBC 0 - 2 Ur Epithelial Cells 0 - 2 Urine Bacteria Few Hyaline Casts 0 - 2 Stool Occult Blood Blood Type Confirm AB POSITIVE 03/05/17 01:30 WBC RBC Hgb Hct MCV MCH MCHC RDW Plt Count MPV Gran % Lymph % (Auto) [place] % (Auto) Eos % (Auto) Baso % (Auto) Gran # Lymph # [place] # Eos # Baso # Urine Color Urine Appearance Urine pH Ur Specific [place] Urine Protein Urine Glucose (UA) Urine Ketones Urine Blood Urine Nitrate Urine Bilirubin Urine Urobilinogen Ur Leukocyte Esterase Urine RBC Urine WBC Ur Epithelial Cells Urine Bacteria Hyaline Casts Stool Occult Blood Positive H Blood Type Confirm Assessment & Plan - Assessment and Plan (Free Text) Assessment: Torres's esophagus History of pituitary adenoma Abdominal pain, hematochezia CT imaging reviewed by me showing moralez colitis without associated abscess or free air. Etiology unclear, though given recent normal colonoscopy in June 2016, this is likely infectious. Plan: - Clear liquid diet as tolerated - Obtain stool studies, c-difficile - Obtain blood culture - Continue with antibiotic therapy - Continue with PPI therapy - Will continue to monitor patient clinical course
[2017-03-05] MEDS: cefTRIAXone 1 gm 1 GM/100 ML BAG IVPB SCH (09:24)
[2017-03-05] MEDS: Levothyroxine 100 MCG TAB PO SCH (09:25)
--- NOTE | 2017-03-05 13:15 | US ---
HISTORY: Leg pain and swelling. Evaluate for DVT PHYSICIAN(S): Jose Williamson MD. TECHNIQUE: Duplex sonography and color-flow Doppler with graded compression were used to evaluate the deep venous systems of both lower extremities. FINDINGS: The visualized deep venous systems of both lower extremities are sonographically normal and compressible. Normal wave forms and augmentation are seen. There is no sonographic evidence for deep venous thrombosis in the visualized segments of both lower extremities. IMPRESSION: No sonographic evidence for deep venous thrombosis in the visualized segments of both lower extremities.
--- NOTE | 2017-03-05 13:28 | CP.PCM.PN ---
<Jarred Moore - Last Filed: 03/05/17 13:18> Subjective - Date & Time of Evaluation Date of Evaluation: 03/05/17 Time of Evaluation: 08:30 - Subjective Subjective: Medicine progress note: Pt seen and examined at bedside. No acute events overnight. Pt c/o water stool and 1 episode of black tarry stool. Denies any ho, dizziness, f/c, sob, cp, abd pain, n/v. Objective - Vital Signs/Intake and Output Vital Signs (last 24 hours): Temp Pulse Resp BP Pulse Ox 98.2 F 67 17 137/84 96 03/05/17 06:00 03/05/17 06:00 03/05/17 06:00 03/05/17 06:00 03/05/17 06:00 Intake and Output: 03/05/17 03/05/17 06:59 18:59 Intake Total 0 Output Total 0 Balance 0 - Medications Medications: Current Medications Atorvastatin Calcium (Lipitor) 10 mg PO HS [facility] Last Admin: 03/04/17 21:13 Dose: 10 mg Hydrocortisone Sodium Succinate (Solu-Cortef) 20 mg IV QAM [facility] Last Admin: 03/05/17 09:26 Dose: 20 mg Hydrocortisone Sodium Succinate (Solu-Cortef) 10 mg IV QPM [facility] Last Admin: 03/04/17 18:29 Dose: 10 mg Metronidazole (Flagyl) 500 mg in 100 mls @ 100 mls/hr IVPB Q8 [facility]ING PRN Reason: Protocol Last Admin: 03/05/17 05:13 Dose: 100 mls/hr Ceftriaxone Sodium (Rocephin 1 Gram Ivpb) 1 gm in 100 mls @ 100 mls/hr IVPB DAILY [facility] PRN Reason: Protocol Last Admin: 03/05/17 09:24 Dose: 100 mls/hr Sodium Chloride (Sodium Chloride 0.9%) 1,000 mls @ 125 mls/hr IV .Q8H [facility] Last Admin: 03/05/17 04:00 Dose: 125 mls/hr Levothyroxine Sodium (Synthroid) 100 mcg PO DAILY [facility] Last Admin: 03/05/17 09:25 Dose: 100 mcg Ondansetron HCl (Zofran Inj) 4 mg IVP Q6H PRN PRN Reason: Nausea/Vomiting Last Admin: 06/24/17 19:03 Dose: 4 mg Pantoprazole Sodium (Protonix Inj) 40 mg IVP Q12 [facility]ING Last Admin: 03/05/17 09:25 Dose: 40 mg Tramadol/Acetaminophen (Ultracet 37.5/325 Mg) 1 tab PO Q6H PRN PRN Reason: Pain, moderate (4-7) Last Admin: 03/05/17 05:18 Dose: 1 tab - Labs Labs: 03/04/17 17:00 PT 11.0 Seconds (9.9-11.8) 03/04/17 12:30 INR 1.02 (0.93-1.08) 03/04/17 12:30 APTT 27.5 Seconds (23.7-30.8) 03/04/17 12:30 - Constitutional Appears: No Acute Distress - Head Exam Head Exam: ATRAUMATIC, NORMAL INSPECTION, NORMOCEPHALIC - Eye Exam Eye Exam: EOMI, Normal appearance, PERRL Pupil Exam: NORMAL ACCOMODATION, PERRL - ENT Exam ENT Exam: Mucous Membranes Moist, Normal Exam - Neck Exam Neck Exam: Full ROM, Normal Inspection. absent: Lymphadenopathy - Respiratory Exam Respiratory Exam: Clear to Ausculation Bilateral, NORMAL BREATHING PATTERN. absent: Wheezes - Cardiovascular Exam Cardiovascular Exam: REGULAR RHYTHM, RRR, +S1, +S2. absent: Murmur - GI/Abdominal Exam GI & Abdominal Exam: Soft, Normal Bowel Sounds. absent: Distended, Tenderness - Extremities Exam Extremities Exam: Full ROM, Normal Capillary Refill, Normal Inspection. 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 1) Colitis and black tarry stool -Continue Protonix IV 40mg BID -CT abd in Ed notable for mural thickening throughout the colon consistent with colitis, more severe on the right, no evidence of pneumatosis/free air -NS 125cc/hr -Zofran PRN for nausea/emesis -GI (Dr. Gonzalez) consulted, appreciate all recs -Continue Rocephin/flagyl IV -F/u C. diff -Colonoscopy in 06/21/16 notable for non-bleeding internal hemorroids, 6mm polyp (resected) -Stool occult positive 2) Left hip/thigh pain -LE Duplex -negative 3) HLD -continue home Lipitor 4) S/p pituitary adenoma partial resection on steroid and thyroid replacement therapy -continue home Synthroid, IV hydrocortisone instead of PO (otherwise same dosing ) 5) Hypokalemia -f/u K -likely 2/2 diarrhea and poor PO intake -repleted in ED, f/u on AM labs 6) GI/DVT ppx - SCD and Protonix Patient seen, reviewed, and discussed with attending, Dr Moreland <Fox Moreland - Last Filed: 03/05/17 13:46> Objective - Vital Signs/Intake and Output Vital Signs (last 24 hours): Temp Pulse Resp BP Pulse Ox 98.2 F 67 17 137/84 96 03/05/17 06:00 03/05/17 06:00 03/05/17 06:00 03/05/17 06:00 03/05/17 06:00 Intake and Output: 03/05/17 03/05/17 06:59 18:59 Intake Total 0 Output Total 0 Balance 0 - Medications Medications: Current Medications Atorvastatin Calcium (Lipitor) 10 mg PO HS [facility] Last Admin: 03/04/17 21:13 Dose: 10 mg Hydrocortisone Sodium Succinate (Solu-Cortef) 20 mg IV QAM [facility]ING Last Admin: 03/05/17 09:26 Dose: 20 mg Hydrocortisone Sodium Succinate (Solu-Cortef) 10 mg IV QPM [facility] Last Admin: 03/04/17 18:29 Dose: 10 mg Metronidazole (Flagyl) 500 mg in 100 mls @ 100 mls/hr IVPB Q8 [facility] PRN Reason: Protocol Last Admin: 03/05/17 13:29 Dose: 100 mls/hr Ceftriaxone Sodium (Rocephin 1 Gram Ivpb) 1 gm in 100 mls @ 100 mls/hr IVPB DAILY [facility] PRN Reason: Protocol Last Admin: 03/05/17 09:24 Dose: 100 mls/hr Sodium Chloride (Sodium Chloride 0.9%) 1,000 mls @ 125 mls/hr IV .Q8H [facility] Last Admin: 03/05/17 13:23 Dose: 125 mls/hr Levothyroxine Sodium (Synthroid) 100 mcg PO DAILY [facility] Last Admin: 03/05/17 09:25 Dose: 100 mcg Ondansetron HCl (Zofran Inj) 4 mg IVP Q6H PRN PRN Reason: Nausea/Vomiting Last Admin: 03/04/17 19:03 Dose: 4 mg Pantoprazole Sodium (Protonix Inj) 40 mg IVP Q12 [facility]ING Last Admin: 03/05/17 09:25 Dose: 40 mg Tramadol/Acetaminophen (Ultracet 37.5/325 Mg) 1 tab PO Q6H PRN PRN Reason: Pain, moderate (4-7) Last Admin: 03/05/17 05:18 Dose: 1 tab - Labs Labs: 03/04/17 17:00 PT 11.0 Seconds (9.9-11.8) 03/04/17 12:30 INR 1.02 (0.93-1.08) 03/04/17 12:30 APTT 27.5 Seconds (23.7-30.8) 03/04/17 12:30 Attending/Attestation - Attestation I have personally seen and examined this patient.: Yes I have fully participated in the care of the patient.: Yes I have reviewed all pertinent clinical information, including history, physical exam and plan: Yes Notes (Text): Patient seen and examined with the resident. Agree with the resident's evaluation, assessment and plan. 71M with PMH of Mckee esophagus s/p EGD ablations, HLD, pituitary adenoma s/p partial resection on chronic steroid and thyroid replacement therapy who presents with complain of diffuse abdominal pain and watery diarrhea with bright red blood present x2 days found to have colitis. Colitis and Possible Acute GI bleeding black tarry stool continue Protonix IV 40mg BID monitor h/h q6
[2017-03-05 15:22] LABS: ADD MANUAL DIFF? NO
[2017-03-05 15:34] LABS: ALB/GLOB RATIO 1.1 (1.1-1.8); ALKALINE PHOSPHATASE 80 U/L (38-133); ALT/SGPT 41 U/L (7-56); AST/SGOT 31 U/L (15-59); BILIRUBIN,TOTAL 0.5 mg/dL (0.2-1.3); BLOOD UREA NITROGEN 10 mg/dL (7-21); CALCIUM 8.3 mg/dL (8.4-10.5); CARBON DIOXIDE 22 mmol/L (21-33); CHLORIDE 104 mmol/L (98-107); GFR AFRICAN-AMERICAN > 60; GLUCOSE,RANDOM 107 mg/dL (70-110); POTASSIUM 4.2 mmol/L (3.6-5.0); SODIUM 134 mmol/L (132-148); TOTAL PROTEIN 6.9 g/dL (5.8-8.3)
[2017-03-05 15:36] LABS: BASO # 0.02 K/mm3 (0.0-2.0); BASO % 0.4 % (0.0-3.0); EOS % 0.2 % (1.5-5.0); GRAN # 4.26 (1.4-6.5); GRAN % 77.3 % (50.0-68.0); LYMPH # 0.9 (1.2-3.4); LYMPH % 16.7 % (22.0-35.0); MEAN CELL VOLUME 84.3 fL (80.0-105.0); MEAN CORPUSCULAR HEMOGLOBIN 28.2 pg (25.0-35.0); MEAN CORPUSCULAR HGB CONC 33.4 g/dl (31.0-37.0); MEAN PLATELET VOLUME 9.2 fl (7.0-11.0); MONO # 0.3 (0.1-0.6); MONO % 5.4 % (1.0-6.0); PLATELET COUNT 189 10^3/uL (120.0-450.0); RED CELL DISTRIBUTION WIDTH 14.8 % (11.5-14.5); WHITE BLOOD COUNT 5.5 10^3/ul (4.5-11.0)
[2017-03-05 22:49] LABS: ADD MANUAL DIFF? NO
[2017-03-05 22:50] LABS: BASO # 0.01 K/mm3 (0.0-2.0); BASO % 0.2 % (0.0-3.0); EOS % 0.7 % (1.5-5.0); GRAN # 4.28 (1.4-6.5); GRAN % 77.1 % (50.0-68.0); HEMATOCRIT 36.4 % (42.0-52.0); LYMPH # 0.9 (1.2-3.4); LYMPH % 16.6 % (22.0-35.0); MEAN CELL VOLUME 84.3 fL (80.0-105.0); MEAN CORPUSCULAR HEMOGLOBIN 28.2 pg (25.0-35.0); MEAN CORPUSCULAR HGB CONC 33.5 g/dl (31.0-37.0); MEAN PLATELET VOLUME 9.6 fl (7.0-11.0); MONO # 0.3 (0.1-0.6); MONO % 5.4 % (1.0-6.0); PLATELET COUNT 195 10^3/uL (120.0-450.0); RED CELL DISTRIBUTION WIDTH 14.7 % (11.5-14.5); WHITE BLOOD COUNT 5.6 10^3/ul (4.5-11.0)
[2017-03-06] MEDS: Sodium Chloride 0.9% 1,000 ML IV SCH ×2 (00:50→04:00)
[2017-03-06 01:21] LABS: ADD MANUAL DIFF? NO
--- NOTE | 2017-03-06 01:27 | CARD ---
APPROVED REPORT EKG Measurement Heart [id number] <Conclusion> Normal sinus rhythm Left axis deviation Inferior infarct, age undetermined Abnormal ECG
[2017-03-06] MEDS: TraMADol/Apap 37.5/325 mg Tab PO PRN (01:40)
[2017-03-06 01:41] LABS: BASO # 0.01 K/mm3 (0.0-2.0); BASO % 0.2 % (0.0-3.0); EOS # 0.1 (0.0-0.7); EOS % 1.6 % (1.5-5.0); GRAN # 2.95 (1.4-6.5); GRAN % 67.7 % (50.0-68.0); HEMATOCRIT 34.4 % (42.0-52.0); LYMPH # 1.1 (1.2-3.4); LYMPH % 24.1 % (22.0-35.0); MEAN CELL VOLUME 83.9 fL (80.0-105.0); MEAN CORPUSCULAR HGB CONC 33.4 g/dl (31.0-37.0); MONO # 0.3 (0.1-0.6); MONO % 6.4 % (1.0-6.0); PLATELET COUNT 165 10^3/uL (120.0-450.0); RED CELL DISTRIBUTION WIDTH 14.5 % (11.5-14.5); WHITE BLOOD COUNT 4.4 10^3/ul (4.5-11.0)
[2017-03-06] MEDS: metroNIDAZOLE IV 500 mg/100 ml 500 MG/100 ML BAG IVPB SCH ×3 (05:12→21:24)
[2017-03-06 07:44] LABS: ADD MANUAL DIFF? NO
[2017-03-06 07:46] LABS: BASO # 0.02 K/mm3 (0.0-2.0); BASO % 0.5 % (0.0-3.0); EOS # 0.2 (0.0-0.7); EOS % 4.6 % (1.5-5.0); GRAN # 2.18 (1.4-6.5); GRAN % 58.6 % (50.0-68.0); HEMATOCRIT 34.8 % (42.0-52.0); LYMPH # 1.1 (1.2-3.4); LYMPH % 28.5 % (22.0-35.0); MEAN CELL VOLUME 83.5 fL (80.0-105.0); MEAN CORPUSCULAR HEMOGLOBIN 28.1 pg (25.0-35.0); MEAN CORPUSCULAR HGB CONC 33.6 g/dl (31.0-37.0); MEAN PLATELET VOLUME 9.2 fl (7.0-11.0); MONO # 0.3 (0.1-0.6); MONO % 7.8 % (1.0-6.0); PLATELET COUNT 180 10^3/uL (120.0-450.0); RED CELL DISTRIBUTION WIDTH 14.6 % (11.5-14.5); WHITE BLOOD COUNT 3.7 10^3/ul (4.5-11.0)
[2017-03-06 07:59] LABS: ALB/GLOB RATIO 1.1 (1.1-1.8); ALKALINE PHOSPHATASE 65 U/L (38-133); ALT/SGPT 31 U/L (7-56); AST/SGOT 27 U/L (15-59); BILIRUBIN,TOTAL 0.5 mg/dL (0.2-1.3); BLOOD UREA NITROGEN 5 mg/dL (7-21); CALCIUM 7.8 mg/dL (8.4-10.5); CARBON DIOXIDE 24 mmol/L (21-33); CHLORIDE 107 mmol/L (98-107); GFR AFRICAN-AMERICAN > 60; GLUCOSE,RANDOM 86 mg/dL (70-110); MAGNESIUM 2.1 mg/dL (1.7-2.2); PHOSPHOROUS 2.5 mg/dL (2.5-4.5); SODIUM 137 mmol/L (132-148); TOTAL PROTEIN 5.6 g/dL (5.8-8.3)
[2017-03-06] MEDS: Levothyroxine 100 MCG TAB PO SCH (10:00)
[2017-03-06] MEDS: cefTRIAXone 1 gm 1 GM/100 ML BAG IVPB SCH (10:41)
[2017-03-06] MEDS ORDERED: Propofol 10 mg/ml Inj (20 ML) ONE (11:21)
[2017-03-06] MEDS ORDERED: Etomidate 20 mg/10ml Inj IV ONE (11:22)
[2017-03-06] MEDS ORDERED: Sodium Chloride 0.9% 1,000 ML IV SCH (12:00)
--- NOTE | 2017-03-06 13:18 | CP.PCM.PN ---
<Jarred Moore - Last Filed: 03/06/17 13:14> Subjective - Date & Time of Evaluation Date of Evaluation: 03/06/17 Time of Evaluation: 07:30 - Subjective Subjective: Medicine progress note: Pt seen and examined at bedside. No acute events overnight. Pt c/o of mid epigastric abdominal pain. Denies any other episode of black tarry stool. Denies any ho, dizziness, f/c, sob, cp, abd pain, n/v. Objective - Vital Signs/Intake and Output Vital Signs (last 24 hours): Temp Pulse Resp BP Pulse Ox 98.4 F 59 L 16 148/72 98 03/06/17 12:25 03/06/17 12:25 03/06/17 12:25 03/06/17 12:25 03/06/17 12:25 Intake and Output: 03/06/17 03/06/17 06:59 18:59 Intake Total 2115 Balance 2115 - Medications Medications: Current Medications Atorvastatin Calcium (Lipitor) 10 mg PO HS [facility] Last Admin: 03/05/17 21:26 Dose: 10 mg Hydrocortisone Sodium Succinate (Solu-Cortef) 20 mg IV QAM [facility] Last Admin: 03/05/17 09:26 Dose: 20 mg Hydrocortisone Sodium Succinate (Solu-Cortef) 10 mg IV QPM [facility] Last Admin: 03/05/17 17:22 Dose: 10 mg Metronidazole (Flagyl) 500 mg in 100 mls @ 100 mls/hr IVPB Q8 [facility] PRN Reason: Protocol Last Admin: 03/06/17 05:12 Dose: 100 mls/hr Ceftriaxone Sodium (Rocephin 1 Gram Ivpb) 1 gm in 100 mls @ 100 mls/hr IVPB DAILY [facility] PRN Reason: Protocol Last Admin: 03/06/17 10:41 Dose: 100 mls/hr Sodium Chloride (Sodium Chloride 0.9%) 1,000 mls @ 125 mls/hr IV .Q8H [facility] Last Admin: 03/06/17 04:00 Dose: Not Given Sodium Chloride (Sodium Chloride 0.9%) 1,000 mls @ 100 mls/hr IV .Q10H [facility] Levothyroxine Sodium (Synthroid) 100 mcg PO DAILY [facility] Last Admin: 03/05/17 09:25 Dose: 100 mcg Ondansetron HCl (Zofran Inj) 4 mg IVP Q6H PRN PRN Reason: Nausea/Vomiting Last Admin: 03/04/17 19:03 Dose: 4 mg Pantoprazole Sodium (Protonix Inj) 40 mg IVP Q12 [facility]ING Last Admin: 03/06/17 10:42 Dose: 40 mg Tramadol/Acetaminophen (Ultracet 37.5/325 Mg) 1 tab PO Q6H PRN PRN Reason: Pain, moderate (4-7) Last Admin: 03/06/17 01:40 Dose: 1 tab Zolpidem Tartrate (Ambien) 5 mg PO HS PRN; Protocol PRN Reason: Insomnia - Labs Labs: 03/06/17 07:20 03/06/17 07:20 PT 11.0 Seconds (9.9-11.8) 03/04/17 12:30 INR 1.02 (0.93-1.08) 03/04/17 12:30 APTT 27.5 Seconds (23.7-30.8) 03/04/17 12:30 - Constitutional Appears: No Acute Distress - Head Exam Head Exam: ATRAUMATIC, NORMAL INSPECTION, NORMOCEPHALIC - Eye Exam Eye Exam: EOMI, Normal appearance, PERRL Pupil Exam: NORMAL ACCOMODATION, PERRL - ENT Exam ENT Exam: Mucous Membranes Moist, Normal Exam - Neck Exam Neck Exam: Full ROM, Normal Inspection. absent: Lymphadenopathy - Respiratory Exam Respiratory Exam: Clear to Ausculation Bilateral, NORMAL BREATHING PATTERN. absent: Wheezes - Cardiovascular Exam Cardiovascular Exam: REGULAR RHYTHM, RRR, +S1, +S2. absent: Murmur - GI/Abdominal Exam GI & Abdominal Exam: Soft, Normal Bowel Sounds. absent: Distended, Tenderness - Extremities Exam Extremities Exam: Full ROM, Normal Capillary Refill, Normal Inspection. absent : Joint Swelling, Pedal Edema - Back Exam Back Exam: NORMAL INSPECTION - Neurological Exam Neurological Exam: Alert, Awake, CN II-XII Intact, Normal Gait, Oriented x3 - Psychiatric Exam Psychiatric exam: Normal Affect, Normal Mood - Skin Skin Exam: Dry, Intact, Normal Color, Warm Assessment and Plan - Assessment and Plan (Free Text) Assessment: 71M with PMH of Mckee esophagus s/p EGD ablations, HLD, pituitary adenoma s/ p partial resection on chronic steroid and thyroid replacement therapy who presents with diffuse abdominal pain and found to have colitis. Plan for EGd and Sigmoidoscopy today. 1) Colitis and black tarry stool - Plan for EGD and flexible sigmoidoscopy this am -Continue Protonix IV 40mg BID -CT abd in Ed notable for mural thickening throughout the colon consistent with colitis, more severe on the right, no evidence of pneumatosis/free air -NS 100cc/hr -Zofran PRN for nausea/emesis -GI (Dr. Gonzalez) consulted, appreciate all recs - EGD and flexible sigmoidoscopy this am -Continue antibiotics - Rocephin/flagyl IV -C. diff - negative -Colonoscopy in 06/21/16 notable for non-bleeding internal hemorroids, 6mm polyp (resected) -Stool occult positive 2) Left hip/thigh pain -LE Duplex -negative 3) HLD -continue home Lipitor 4) S/p pituitary adenoma partial resection on steroid and thyroid replacement therapy -continue home Synthroid, IV hydrocortisone instead of PO (otherwise same dosing ) 5) Hypokalemia - resolved - K is 4 - Replete as needed 6) GI/DVT ppx - SCD and Protonix Patient seen, reviewed, and discussed with attending Dr Gilbert. <Vladimir HARRIS,[facility] - Last Filed: 03/07/17 15:46> Objective - Vital Signs/Intake and Output Vital Signs (last 24 hours): Temp Pulse Resp BP Pulse Ox 98.1 F 58 L 18 109/67 96 03/07/17 08:24 03/07/17 10:00 03/07/17 08:24 03/07/17 08:24 03/07/17 08:24 Intake and Output: 03/07/17 03/07/17 06:59 18:59 Intake Total 660 Output Total 550 Balance 110 - Labs Labs: 03/07/17 07:00 03/07/17 07:00 PT 11.0 Seconds (9.9-11.8) 03/04/17 12:30 INR 1.02 (0.93-1.08) 03/04/17 12:30 APTT 27.5 Seconds (23.7-30.8) 03/04/17 12:30 Attending/Attestation - Attestation I have personally seen and examined this patient.: Yes I have fully participated in the care of the patient.: Yes I have reviewed all pertinent clinical information, including history, physical exam and plan: Yes Notes (Text): 03/07/17 15:44 Patient was seen and examined with biomedical service engineer .Agreed with resident assessment and plan. Patient is feeling better.Diarrhea is improving.Hemoglobin is stable.Patient is for EGD and Sigmoidoscopy today. Management plan was discussed in detail with patient Education was provided.
[2017-03-06 16:37] VITALS: RESP 18
[2017-03-07] MEDS: metroNIDAZOLE IV 500 mg/100 ml 500 MG/100 ML BAG IVPB SCH (05:17)
--- NOTE | 2017-03-07 07:41 | CP.PCM.PN ---
<DannieBetsey - Last Filed: 03/07/17 11:23> Subjective - Date & Time of Evaluation Date of Evaluation: 03/07/17 Time of Evaluation: 07:34 - Subjective Subjective: Gastroenterology Fellow/PGY4 Progress Note Patient notes improved abdominal pain. Tolerating clear liquids. Small formed bowel movement this morning. A 12-point review of systems negative except for as above. Objective - Vital Signs/Intake and Output Vital Signs (last 24 hours): Temp Pulse Resp BP Pulse Ox 98.5 F 53 L 18 112/74 99 03/07/17 00:00 03/07/17 06:00 03/07/17 00:00 03/07/17 00:00 03/07/17 00:00 Intake and Output: 03/07/17 03/07/17 06:59 18:59 Intake Total 660 Output Total 550 Balance 110 - Medications Medications: Current Medications Atorvastatin Calcium (Lipitor) 10 mg PO HS [facility] Last Admin: 03/06/17 21:25 Dose: 10 mg Hydrocortisone Sodium Succinate (Solu-Cortef) 20 mg IVP QAM TING Hydrocortisone Sodium Succinate (Solu-Cortef) 10 mg IVP QPM [facility] Metronidazole (Flagyl) 500 mg in 100 mls @ 100 mls/hr IVPB Q8 TING PRN Reason: Protocol Last Admin: 03/07/17 05:17 Dose: 100 mls/hr Ceftriaxone Sodium (Rocephin 1 Gram Ivpb) 1 gm in 100 mls @ 100 mls/hr IVPB DAILY TING PRN Reason: Protocol Last Admin: 03/06/17 10:41 Dose: 100 mls/hr Sodium Chloride (Sodium Chloride 0.9%) 1,000 mls @ 100 mls/hr IV .Q10H [facility] Last Admin: 03/07/17 05:17 Dose: 100 mls/hr Levothyroxine Sodium (Synthroid) 100 mcg PO DAILY [facility] Last Admin: 03/06/17 10:00 Dose: Not Given Ondansetron HCl (Zofran Inj) 4 mg IVP Q6H PRN PRN Reason: Nausea/Vomiting Last Admin: 03/04/17 19:03 Dose: 4 mg Pantoprazole Sodium (Protonix Inj) 40 mg IVP Q12 [facility] Last Admin: 03/06/17 21:25 Dose: 40 mg Tramadol/Acetaminophen (Ultracet 37.5/325 Mg) 1 tab PO Q6H PRN PRN Reason: Pain, moderate (4-7) Last Admin: 03/06/17 01:40 Dose: 1 tab Zolpidem Tartrate (Ambien) 5 mg PO HS PRN; Protocol PRN Reason: Insomnia - Labs Labs: 03/06/17 07:20 03/06/17 07:20 PT 11.0 Seconds (9.9-11.8) 03/04/17 12:30 INR 1.02 (0.93-1.08) 03/04/17 12:30 APTT 27.5 Seconds (23.7-30.8) 03/04/17 12:30 - Constitutional Appears: Non-toxic, No Acute Distress - Head Exam Head Exam: ATRAUMATIC, NORMOCEPHALIC - Eye Exam Eye Exam: EOMI, PERRL Pupil Exam: PERRL. absent: Miosis, Mydriatic - ENT Exam ENT Exam: Mucous Membranes Moist, Normal Oropharynx - Neck Exam Neck Exam: Full ROM, Normal Inspection - Respiratory Exam Respiratory Exam: Clear to Ausculation Bilateral. absent: Rales, Rhonchi, Wheezes - Cardiovascular Exam Cardiovascular Exam: RRR, +S1, +S2. absent: Gallop, Rubs, Murmur - GI/Abdominal Exam GI & Abdominal Exam: Soft, Normal Bowel Sounds. absent: Distended, Firm, Guarding, Rigid, Tenderness, Organomegaly, Rebound - Extremities Exam Extremities Exam: Full ROM. 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 Active treatment of pancolitis on CT A/P with IV contrast. POD 1( 03/06) EGD showing residual Mckee's C0M2, Gastritis, and flexible sigmoidoscopy showing patchy inflammatory changes of descending and transverse colon with pita -diverticular erythematous changes. EGD 01/2017 Mckee's esophagus C3M6 s/p cryotherapy and colonoscopy 06/2016 showed diverticulosis and a 6mm hyperplastic polyp. Plan: >advance to heart healthy diet >Cdiff negative, pending stool culture >follow up EGD and flex sig biopsies- sent HSV, CMV >continue PPI daily >supportive care: antiemetics, pain control >okay to discharge from GI standpoint, may provide Cipro/Flagyl on discharge >outpatient follow up at [facility] with Dr. Pandey, GI fellow -biopsy follow up and scheduling cryotherapy in April with Dr. Arce <Alen Arce - Last Filed: 03/07/17 11:46> Objective - Vital Signs/Intake and Output Vital Signs (last 24 hours): Temp Pulse Resp BP Pulse Ox 98.1 F 56 L 18 109/67 96 03/07/17 08:24 03/07/17 08:24 03/07/17 08:24 03/07/17 08:24 03/07/17 08:24 Intake and Output: 03/07/17 03/07/17 06:59 18:59 Intake Total 660 Output Total 550 Balance 110 - Medications Medications: Current Medications Atorvastatin Calcium (Lipitor) 10 mg PO HS TING Last Admin: 03/06/17 21:25 Dose: 10 mg Hydrocortisone Sodium Succinate (Solu-Cortef) 20 mg IVP QAM TING Last Admin: 03/07/17 10:21 Dose: 20 mg Hydrocortisone Sodium Succinate (Solu-Cortef) 10 mg IVP QPM TING Metronidazole (Flagyl) 500 mg in 100 mls @ 100 mls/hr IVPB Q8 TING PRN Reason: Protocol Last Admin: 03/07/17 05:17 Dose: 100 mls/hr Ceftriaxone Sodium (Rocephin 1 Gram Ivpb) 1 gm in 100 mls @ 100 mls/hr IVPB DAILY TING PRN Reason: Protocol Last Admin: 03/07/17 10:20 Dose: 100 mls/hr Sodium Chloride (Sodium Chloride 0.9%) 1,000 mls @ 100 mls/hr IV .Q10H TING Last Admin: 03/07/17 05:17 Dose: 100 mls/hr Levothyroxine Sodium (Synthroid) 100 mcg PO DAILY TING Last Admin: 03/07/17 10:19 Dose: 100 mcg Ondansetron HCl (Zofran Inj) 4 mg IVP Q6H PRN PRN Reason: Nausea/Vomiting Last Admin: 03/04/17 19:03 Dose: 4 mg Pantoprazole Sodium (Protonix Inj) 40 mg IVP Q12 TING Last Admin: 03/07/17 10:19 Dose: 40 mg Tramadol/Acetaminophen (Ultracet 37.5/325 Mg) 1 tab PO Q6H PRN PRN Reason: Pain, moderate (4-7) Last Admin: 03/06/17 01:40 Dose: 1 tab Zolpidem Tartrate (Ambien) 5 mg PO HS PRN; Protocol PRN Reason: Insomnia - Labs Labs: 03/07/17 07:00 03/07/17 07:00 PT 11.0 Seconds (9.9-11.8) 03/04/17 12:30 INR 1.02 (0.93-1.08) 03/04/17 12:30 APTT 27.5 Seconds (23.7-30.8) 03/04/17 12:30 Attending/Attestation - Attestation I have personally seen and examined this patient.: Yes I have fully participated in the care of the patient.: Yes I have reviewed all pertinent clinical information, including history, physical exam and plan: Yes Notes (Text): 03/07/17 11:43 71 year old male with history of Mckee's esophagus with LGD status post cryotherapy 01/2017, pituitary adenoma status post resection, and HLD presenting with dysphagia, abdominal pain, and black loose stools, found to have colitis. 1. Colitis 2. Mckee's esophagus Plan: -uncertain etiology of colitis, patchy distribution, no prior history -stool studies negative for infectious etiologies at this point -no signs of chronic mesenteric ischemia on imaging -await pathology results -treat with antibiotics for 2 weeks -consider repeat colononoscopy in 2 months -continue daily PPI for Mckee's esophagus with LGD -recommend repeat cryotherapy in April
[2017-03-07 07:45] LABS: ADD MANUAL DIFF? NO
[2017-03-07 07:47] LABS: BASO # 0.04 K/mm3 (0.0-2.0); BASO % 1.2 % (0.0-3.0); EOS # 0.2 (0.0-0.7); GRAN % 49.5 % (50.0-68.0); LYMPH # 1.1 (1.2-3.4); MEAN CELL VOLUME 82.9 fL (80.0-105.0); MEAN CORPUSCULAR HEMOGLOBIN 28.3 pg (25.0-35.0); MEAN CORPUSCULAR HGB CONC 34.2 g/dl (31.0-37.0); MEAN PLATELET VOLUME 9.2 fl (7.0-11.0); MONO # 0.3 (0.1-0.6); MONO % 9.3 % (1.0-6.0); PLATELET COUNT 204 10^3/uL (120.0-450.0); RED CELL DISTRIBUTION WIDTH 14.6 % (11.5-14.5); WHITE BLOOD COUNT 3.2 10^3/ul (4.5-11.0)
[2017-03-07 08:00] LABS: ALB/GLOB RATIO 1.2 (1.1-1.8); ALKALINE PHOSPHATASE 67 U/L (38-133); ALT/SGPT 37 U/L (7-56); AST/SGOT 30 U/L (15-59); BILIRUBIN,TOTAL 0.4 mg/dL (0.2-1.3); BLOOD UREA NITROGEN 4 mg/dL (7-21); CARBON DIOXIDE 24 mmol/L (21-33); CHLORIDE 107 mmol/L (95-110); GFR AFRICAN-AMERICAN > 60; GLUCOSE,RANDOM 83 mg/dL (70-110); POTASSIUM 3.6 mmol/L (3.6-5.0); SODIUM 139 mmol/L (132-148); TOTAL PROTEIN 5.8 g/dL (5.8-8.3)
[2017-03-07 08:26] VITALS: BP 109/67; TEMP 98.1; O2SAT 96
[2017-03-07] MEDS: Levothyroxine 100 MCG TAB PO SCH (10:19)
[2017-03-07] MEDS: cefTRIAXone 1 gm 1 GM/100 ML BAG IVPB SCH (10:20)
--- NOTE | 2017-03-07 12:21 | CP.PCM.DIS ---
<Jarred Moore - Last Filed: 03/07/17 12:11> Provider - Provider Date of Admission: 03/04/17 14:24 Attending physician: Salome Gilbert MD Primary care physician: Ramila Profile Required Consults: GI Time Spent in preparation of Discharge (in minutes): 40 Hospital Course - Lab Results Lab Results: Micro Results 03/05/17 23:10 Urine,Clean Catch Urine Culture - Final No Growth (<1,000 CFU/ML) 03/04/17 17:00 Blood S.aureus & Coag-Neg Staph PNA FISH - Final 03/04/17 17:00 Blood Blood Culture - Final Coagulase Neg Staphylococcus 03/04/17 17:00 Blood Gram Stain - Final 03/05/17 18:00 Blood Blood Culture - Preliminary NO GROWTH AFTER 24 HOURS 03/05/17 18:00 Blood Blood Culture - Preliminary NO GROWTH AFTER 24 HOURS 03/05/17 01:30 Stool C. difficile Antigen & Toxin A,B (M - Final Most Recent Lab Values WBC 3.2 10^3/ul (4.5-11.0) L 03/07/17 07:00 RBC 4.34 10^6/uL (3.5-6.1) 03/07/17 07:00 Hgb 12.3 gm/dL (14.0-18.0) L 03/07/17 07:00 Hct 36.0 % (42.0-52.0) L 03/07/17 07:00 MCV 82.9 fL (80.0-105.0) 03/07/17 07:00 MCH 28.3 pg (25.0-35.0) 03/07/17 07:00 MCHC 34.2 g/dl (31.0-37.0) 03/07/17 07:00 RDW 14.6 % (11.5-14.5) H 03/07/17 07:00 Plt Count 204 10^3/uL (120.0-450.0) 03/07/17 07:00 MPV 9.2 fl (7.0-11.0) 03/07/17 07:00 Gran % 49.5 % (50.0-68.0) L 03/07/17 07:00 Lymph % (Auto) 35.0 % (22.0-35.0) 03/07/17 07:00 Crenshaw % (Auto) 9.3 % (1.0-6.0) H 03/07/17 07:00 Eos % (Auto) 5.0 % (1.5-5.0) 03/07/17 07:00 Baso % (Auto) 1.2 % (0.0-3.0) 03/07/17 07:00 Gran # 1.60 (1.4-6.5) 03/07/17 07:00 Lymph # 1.1 (1.2-3.4) L 03/07/17 07:00 Crenshaw # 0.3 (0.1-0.6) 03/07/17 07:00 Eos # 0.2 (0.0-0.7) 03/07/17 07:00 Baso # 0.04 K/mm3 (0.0-2.0) 03/07/17 07:00 PT 11.0 Seconds (9.9-11.8) 03/04/17 12:30 INR 1.02 (0.93-1.08) 03/04/17 12:30 APTT 27.5 Seconds (23.7-30.8) 03/04/17 12:30 Sodium 139 mmol/L (132-148) 03/07/17 07:00 Potassium 3.6 mmol/L (3.6-5.0) 03/07/17 07:00 Chloride 107 mmol/L (95-110) 03/07/17 07:00 Carbon Dioxide 24 mmol/L (21-33) 03/07/17 07:00 Anion Gap 12 (10-20) 03/07/17 07:00 BUN 4 mg/dL (7-21) L 03/07/17 07:00 Creatinine 0.8 mg/dL (0.5-1.4) 03/07/17 07:00 Est GFR ( Amer) > 60 03/07/17 07:00 Est GFR (Non-Af Amer) > 60 03/07/17 07:00 Random Glucose 83 mg/dL (70-110) 03/07/17 07:00 Calcium 8.0 mg/dL (8.4-10.5) L 03/07/17 07:00 Phosphorus 2.5 mg/dL (2.5-4.5) 03/06/17 07:20 Magnesium 2.1 mg/dL (1.7-2.2) 03/06/17 07:20 Total Bilirubin 0.4 mg/dL (0.2-1.3) 03/07/17 07:00 AST 30 U/L (15-59) 03/07/17 07:00 ALT 37 U/L (7-56) 03/07/17 07:00 Alkaline Phosphatase 67 U/L (38-133) 03/07/17 07:00 Lactate Dehydrogenase 542 U/L (333-699) 03/04/17 12:30 Total Creatine Kinase 88 U/L (35-230) 03/04/17 12:30 Troponin I < 0.01 ng/mL 03/04/17 12:30 Total Protein 5.8 g/dL (5.8-8.3) 03/07/17 07:00 Albumin 3.1 g/dL (3.0-4.8) 03/07/17 07:00 Globulin 2.7 gm/dL 03/07/17 07:00 Albumin/Globulin Ratio 1.2 (1.1-1.8) 03/07/17 07:00 Lipase 78 U/L (23-300) 03/04/17 12:30 Urine Color Yellow (YELLOW) 03/05/17 01:30 Urine Appearance Clear (CLEAR) 03/05/17 01:30 Urine pH 6.0 (4.7-8.0) 03/05/17 01:30 Ur Specific [place] >= 1.030 (1.005-1.035) 03/05/17 01:30 Urine Protein Trace mg/dL (<30 mg/dL) H 03/05/17 01:30 Urine Glucose (UA) Negative mg/dL (NEGATIVE) 03/05/17 01:30 Urine Ketones 40 mg/dL (NEGATIVE) H 03/05/17 01:30 Urine Blood Small (NEGATIVE) H 03/05/17 01:30 Urine Nitrate Negative (NEGATIVE) 03/05/17 01:30 Urine Bilirubin Negative (NEGATIVE) 03/05/17 01:30 Urine Urobilinogen 0.2 E.U./dL (<1 E.U./dL) 03/05/17 01:30 Ur Leukocyte Esterase Negative Chela/uL (NEGATIVE) 03/05/17 01:30 Urine RBC 0 - 2 /hpf (0-2) 03/05/17 01:30 Urine WBC 0 - 2 /hpf (0-6) 03/05/17 01:30 Ur Epithelial Cells 0 - 2 /hpf (0-5) 03/05/17 01:30 Urine Bacteria Few (NEG) 03/05/17 01:30 Hyaline Casts 0 - 2 /hpf 03/05/17 01:30 Stool Occult Blood Positive (NEGATIVE) H 03/05/17 10:15 Blood Type AB POSITIVE 03/04/17 12:30 Blood Type Confirm AB POSITIVE 03/04/17 14:40 Antibody Screen Negative 03/04/17 12:30 BBK History Checked No verified bt 03/04/17 12:30 - Hospital Course Hospital Course: 71yo (Slovenian-speaking only) M with PMH of Mckee esophagus s/p EGD ablations, HLD, pituitary adenoma s/p partial resection on chronic steroid and thyroid replacement therapy who presents to [facility] [place] with complain of diffuse abdominal pain and watery diarrhea with bright red blood present x2 days. In the ED basic labwork was done. Initial Hb was 13.5. EKG showed 68bpm NSR LAD, inferior infarct age indeterminate. CXr showed no active disease. CT abd was notable for mural thickening throughout the colon consistent with colitis, more severe on the right, no evidence of pneumatosis/free air. GI was consulted. IV ABX Rocephin and Flagyl was started. PPI started. Pt was also found to be hypokalemic to 3.3 and potassium was repleted. Pt was sent to the floor for closer monitoring. Ext US was negative for DVT. Serial CBC showed stable H/H. GI was consulted and recommended continued IV antibiotics and EGD and sigmoidoscopy. EGD showed: residual barrets esophagus and recommended follow up for upper endoscopy in 2 months. Sigmoidoscopy showed some diverticulosis and surrounding erythema. and patch moderate inflammation found in descending and transverse colon 2/2 moralez colitis bx taken, and internal hemorrhoids. Today the pt feels much better. He denies any diarrhea, or any more episodes of black tarry stool. Denies any ho, dizziness, f/c, sob, abd pain, n/v/d. Discharge Exam - Head Exam Head Exam: ATRAUMATIC, NORMOCEPHALIC - Eye Exam Eye Exam: EOMI, Normal appearance, PERRL Pupil Exam: NORMAL ACCOMODATION, PERRL - Respiratory Exam Respiratory Exam: Clear to PA & Lateral. absent: Rales, Rhonchi, Wheezes - Cardiovascular Exam Cardiovascular Exam: REGULAR RHYTHM, RRR, +S1, +S2 - GI/Abdominal Exam GI & Abdominal Exam: Normal Bowel Sounds, Soft. absent: Tenderness - Neurological Exam Neurological exam: Alert, CN II-XII Intact, Normal Gait, Oriented x3, Reflexes Normal - Psychiatric Exam Psychiatric exam: Normal Affect, Normal Mood - Skin Skin Exam: Dry, Intact, Normal Color, Warm Discharge Plan - Discharge Medications Prescriptions: Ciprofloxacin [Cipro] 500 mg PO Q12H #6 tab metroNIDAZOLE [Flagyl] 500 mg PO Q6H #12 tab Ondansetron [Zofran Inj] 4 mg IVP Q6H PRN #10 vial PRN Reason: Nausea/Vomiting - Follow Up Plan Condition: IMPROVED Disposition: HOME/ ROUTINE Patient education suggested?: Yes Instructions: Hypokalemia (DC), Hypokalemia (GEN), Infectious Colitis (GEN) Additional Instructions: Follow up with your PMD with in 2-3 days. Follow up with your Gastroenetrologist with in 1 week. Repeat endoscopy in 2 months. If your symptoms recur come back to the ED. Take your medication / abx as prescribed. Referrals: Ramila Andrew, [Primary Care Provider] - <Vladimir HARRIS,Salome - Last Filed: 03/07/17 16:26> Provider - Provider Date of Admission: 03/04/17 14:24 Attending physician: Salome Gilbert MD Primary care physician: Ramila Husain Required Hospital Course - Lab Results Lab Results: Micro Results 03/05/17 01:30 Stool Stool Culture - Final NO SALMONELLA, SHIGELLA OR CAMPYLOBACTER ISOLATED. 03/05/17 23:10 Urine,Clean Catch Urine Culture - Final No Growth (<1,000 CFU/ML) 03/04/17 17:00 Blood S.aureus & Coag-Neg Staph PNA FISH - Final 03/04/17 17:00 Blood Blood Culture - Final Coagulase Neg Staphylococcus 03/04/17 17:00 Blood Gram Stain - Final 03/05/17 18:00 Blood Blood Culture - Preliminary NO GROWTH AFTER 24 HOURS 03/05/17 18:00 Blood Blood Culture - Preliminary NO GROWTH AFTER 24 HOURS 03/05/17 01:30 Stool C. difficile Antigen & Toxin A,B (M - Final Most Recent Lab Values WBC 3.2 10^3/ul (4.5-11.0) L 03/07/17 07:00 RBC 4.34 10^6/uL (3.5-6.1) 03/07/17 07:00 Hgb 12.3 gm/dL (14.0-18.0) L 03/07/17 07:00 Hct 36.0 % (42.0-52.0) L 03/07/17 07:00 MCV 82.9 fL (80.0-105.0) 03/07/17 07:00 MCH 28.3 pg (25.0-35.0) 03/07/17 07:00 MCHC 34.2 g/dl (31.0-37.0) 03/07/17 07:00 RDW 14.6 % (11.5-14.5) H 03/07/17 07:00 Plt Count 204 10^3/uL (120.0-450.0) 03/07/17 07:00 MPV 9.2 fl (7.0-11.0) 03/07/17 07:00 Gran % 49.5 % (50.0-68.0) L 03/07/17 07:00 Lymph % (Auto) 35.0 % (22.0-35.0) 03/07/17 07:00 Crenshaw % (Auto) 9.3 % (1.0-6.0) H 03/07/17 07:00 Eos % (Auto) 5.0 % (1.5-5.0) 03/07/17 07:00 Baso % (Auto) 1.2 % (0.0-3.0) 03/07/17 07:00 Gran # 1.60 (1.4-6.5) 03/07/17 07:00 Lymph # 1.1 (1.2-3.4) L 03/07/17 07:00 Crenshaw # 0.3 (0.1-0.6) 03/07/17 07:00 Eos # 0.2 (0.0-0.7) 03/07/17 07:00 Baso # 0.04 K/mm3 (0.0-2.0) 03/07/17 07:00 PT 11.0 Seconds (9.9-11.8) 03/04/17 12:30 INR 1.02 (0.93-1.08) 03/04/17 12:30 APTT 27.5 Seconds (23.7-30.8) 03/04/17 12:30 Sodium 139 mmol/L (132-148) 03/07/17 07:00 Potassium 3.6 mmol/L (3.6-5.0) 03/07/17 07:00 Chloride 107 mmol/L (95-110) 03/07/17 07:00 Carbon Dioxide 24 mmol/L (21-33) 03/07/17 07:00 Anion Gap 12 (10-20) 03/07/17 07:00 BUN 4 mg/dL (7-21) L 03/07/17 07:00 Creatinine 0.8 mg/dL (0.5-1.4) 03/07/17 07:00 Est GFR ( Amer) > 60 03/07/17 07:00 Est GFR (Non-Af Amer) > 60 03/07/17 07:00 Random Glucose 83 mg/dL (70-110) 03/07/17 07:00 Calcium 8.0 mg/dL (8.4-10.5) L 03/07/17 07:00 Phosphorus 2.5 mg/dL (2.5-4.5) 03/06/17 07:20 Magnesium 2.1 mg/dL (1.7-2.2) 03/06/17 07:20 Total Bilirubin 0.4 mg/dL (0.2-1.3) 03/07/17 07:00 AST 30 U/L (15-59) 03/07/17 07:00 ALT 37 U/L (7-56) 03/07/17 07:00 Alkaline Phosphatase 67 U/L (38-133) 03/07/17 07:00 Lactate Dehydrogenase 542 U/L (333-699) 03/04/17 12:30 Total Creatine Kinase 88 U/L (35-230) 03/04/17 12:30 Troponin I < 0.01 ng/mL 03/04/17 12:30 Total Protein 5.8 g/dL (5.8-8.3) 03/07/17 07:00 Albumin 3.1 g/dL (3.0-4.8) 03/07/17 07:00 Globulin 2.7 gm/dL 03/07/17 07:00 Albumin/Globulin Ratio 1.2 (1.1-1.8) 03/07/17 07:00 Lipase 78 U/L (23-300) 03/04/17 12:30 Urine Color Yellow (YELLOW) 03/05/17 01:30 Urine Appearance Clear (CLEAR) 03/05/17 01:30 Urine pH 6.0 (4.7-8.0) 03/05/17 01:30 Ur Specific [place] >= 1.030 (1.005-1.035) 03/05/17 01:30 Urine Protein Trace mg/dL (<30 mg/dL) H 03/05/17 01:30 Urine Glucose (UA) Negative mg/dL (NEGATIVE) 03/05/17 01:30 Urine Ketones 40 mg/dL (NEGATIVE) H 03/05/17 01:30 Urine Blood Small (NEGATIVE) H 03/05/17 01:30 Urine Nitrate Negative (NEGATIVE) 03/05/17 01:30 Urine Bilirubin Negative (NEGATIVE) 03/05/17 01:30 Urine Urobilinogen 0.2 E.U./dL (<1 E.U./dL) 03/05/17 01:30 Ur Leukocyte Esterase Negative Chela/uL (NEGATIVE) 03/05/17 01:30 Urine RBC 0 - 2 /hpf (0-2) 03/05/17 01:30 Urine WBC 0 - 2 /hpf (0-6) 03/05/17 01:30 Ur Epithelial Cells 0 - 2 /hpf (0-5) 03/05/17 01:30 Urine Bacteria Few (NEG) 03/05/17 01:30 Hyaline Casts 0 - 2 /hpf 03/05/17 01:30 Stool Occult Blood Positive (NEGATIVE) H 03/05/17 10:15 Blood Type AB POSITIVE 03/04/17 12:30 Blood Type Confirm AB POSITIVE 03/04/17 14:40 Antibody Screen Negative 03/04/17 12:30 BBK History Checked No verified bt 03/04/17 12:30 Attending/Attestation - Attestation I have personally seen and examined this patient.: Yes I have fully participated in the care of the patient.: Yes I have reviewed all pertinent clinical information, including history, physical exam and plan: Yes Notes (Text): 03/07/17 16:22 Patient was seen and examined with medical appointment scheduler .Agreed with resident assessment and plan. 71 year old male with history of Mckee's esophagus with LGD status post cryotherapy 01/2017, pituitary adenoma status post resection, and HLD presenting with dysphagia, abdominal pain, and black loose stools, found to have colitis and Mckee's esophagus.Patient was treated with IV antibiotics, stool cultures are negative.Diarrhea has improved.One blood culture bottle grew Coagulase negative staph, which is contaminated.Repeat blood cultures are negative at the time of discharge.Patient diarrhea has resolved.He will follow up with PCP and GI.He will be discharged home on Cipro/Flagyl and PPI.He will need Colonoscopy in 2 month with GI. Management plan was discussed in detail with patient Education was provide.
[2017-03-07 14:08] VITALS: PULSE 58
== END 2017-03-07 14:35 | disposition home or self-care (01) | DRG 813 ==
LOC: ED 11:25 → ERH 14:24 → 3RSO 17:23
PROVIDERS: ADMIT Internal Medicine; ATTEND Internal Medicine
PROC: 0DBN8ZX Excision of Sigmoid Colon, Via Natural or Artificial Opening Endoscopic, Diagnostic (ICD-10-PCS; principal; 2017-03-06 12:30)
PROC: 0DJ08ZZ Inspection of Upper Intestinal Tract, Via Natural or Artificial Opening Endoscopic (ICD-10-PCS; 2017-03-06 12:30)
DX: K52.9 Noninfective gastroenteritis and colitis, unspecified (principal); E87.6 Hypokalemia; K63.3 Ulcer of intestine; R13.10 Dysphagia, unspecified; K22.710 Barrett's esophagus with low grade dysplasia; K21.9 Gastro-esophageal reflux disease without esophagitis; K29.70 Gastritis, unspecified, without bleeding; K57.90 Diverticulosis of intestine, part unspecified, without perforation or abscess without bleeding; K64.8 Other hemorrhoids; Z86.010 Personal history of colon polyps; D35.2 Benign neoplasm of pituitary gland; E03.9 Hypothyroidism, unspecified; E78.5 Hyperlipidemia, unspecified; Z79.52 Long term (current) use of systemic steroids; Z79.899 Other long term (current) drug therapy; Z80.9 Family history of malignant neoplasm, unspecified; Z87.891 Personal history of nicotine dependence; Z98.42 Cataract extraction status, left eye; Z98.41 Cataract extraction status, right eye; M25.552 Pain in left hip; M79.652 Pain in left thigh